=== PATIENT | female | born 1990 | race Caucasian/White ===

== ENCOUNTER 2016-09-27 14:08 | Inpatient (IN) | payer MEDICAID ==
[2016-09-27] VITALS (9 sets, daily range): BP systolic 109–132; BP diastolic 61–79; PULSE 91–124; RESP 18–20; TEMP 97.9–98.9
[~2016-09-27 14:08] MED LIST: Z.0.BCPILL PO; Z.0.NO CURRENT MEDS; ZITH250T PO
--- NOTE | 2016-09-27 15:12 | PD ---
HPI Chief Complaint Patient was thinking that her water might be leaking and was having some contractions Date Seen: Sep 27, 2016 Travel History International Travel<30 Days: No Contact w/Intl Traveler<30Days: No Known Affected Area: No History of Present Illness HPI Patient is a 26-year-old white female [address] Lin and Brandie presents complaining of possibly leaking fluid earlier in the day she wasn't sure and she is having some mild contractions but not really having pain and at times not even noticing if she is doris, heart rate tracing is reactive and she is doris irregularly Para: 1 : 2 History Obstetric History Obstetric History One vaginal delivery Social History Alcohol Use: No Tobacco Use: No Substance Abuse: No Allergies-Medications (Allergen,Severity, Reaction): Coded Allergies: Amoxicillin (Verified Allergy, Severe, Hives, 07/10/12) Percocet (Verified Allergy, Severe, 07/10/12) Penicillin (Verified Allergy, Intermediate, 07/10/12) Chocolate (Verified Allergy, Mild, SNEZZES, 07/10/12) Erythrocin (Verified Allergy, Mild, HIVES, 07/10/12) Zyrtec (Verified Allergy, Mild, Hives, 07/10/12) Home Meds Active Scripts Azithromycin (Zithromax Z-Jayden)250 Mg [id number] Mg PO DIRECTED 5 Days 500 MG (2 TABLETS) PO ON DAY 1, THEN 250 MG (1 TABLET) PO ON DAYS 2 TO 5. Prov:FARRAH BARRIENTOS M.D. 07/10/12 Azithromycin (Zithromax Z-Jayden)250 Mg [id number] Mg PO DIRECTED 5 Days 500 MG (2 TABLETS) PO ON DAY 1, THEN 250 MG (1 TABLET) PO ON DAYS 2 TO 5. Prov:Stanislaw Lynn 03/03/12 Reported Medications Miscellaneous (No Current Meds) Misc 07/10/12 Miscellaneous ( Control Pills) Tab1 Tab PO DAILY 12/30/11 Review of Systems General / Constitutional: No: Fever, Weight Gain, Chills, Other Physical Exam Narrative GENERAL: Well-nourished, well-developed patient. SKIN: Warm and dry. HEAD: Normocephalic and atraumatic. EYES: No scleral icterus. No injection or drainage. ENT: No nasal drainage noted. Mucous membranes pink. Airway patent. NECK: Supple, trachea midline. No JVD. CARDIOVASCULAR: Regular rate and rhythm without murmurs, gallops, or rubs. RESPIRATORY: Breath sounds equal bilaterally. No accessory muscle use. BREASTS: Bilateral exam showed no masses , no retractions, no nipple discharge. ABDOMEN/GI: Abdomen soft, non-tender, bowel sounds present, no rebound, no guarding Gravid to [-term] weeks size Fundal Height: [35 cm-] GENITOURINARY: External Genitalia: intact and normal in appearance BUS glands: [-] Cervix: [-Anterior] Dilatation: 5] Effacement: [80-] Station: [-1-] Presentation: [vtx-] Membranes: [intact] bulging Uterine Contractions: [irreg-] FHT's: Category: [1-] Baseline: [133-] Reactive: [-yes] Variability: [-mod] Decels: [-none] EXTREMITIES: No cyanosis or edema. BACK: Nontender without obvious deformity. No CVA tenderness. NEUROLOGICAL: Awake and alert. Motor and sensory grossly within normal limits. Five out of 5 muscle strength in all muscle groups. Normal speech. Data Data Labs Amnio sure negative MDM Interpretation(s) Patient is a 37 week intrauterine followed by [facility] presents complaining of some leakage of fluid in the M sure was negative. She is doris irregularly and is also noted to be cervix is 5 cm 80% of the bulging bag vertex presentation and with that advanced cervical condition will discuss with Dr. Lin if he'd liked to keep the patient here and get delivered or whatever his preference would be Diagnosis Diagnosis: Primary Impression: No leakage of amniotic fluid into vagina Additional Impression: Irregular contractions Diogo Mendez II, MD Sep 27, 2016 15:12
[2016-09-27] MEDS ORDERED: LACTATED RINGER'S 1000 ML INJ 1,000 ML IV SCH (15:28)
[2016-09-27] MEDS ORDERED: LIDOCAINE HCL 1% 50 ML VIAL INFIL PRN (15:30)
[2016-09-27] MEDS ORDERED: OXYTOCIN 30 UNITS-500ML PREMIX 500 ML IV ONE ×2 (15:30→22:15)
[2016-09-27] MEDS ORDERED: SODIUM CHLORID 0.9% 500 ML INJ 500 ML IV PRN (15:30)
[2016-09-27] MEDS ORDERED: MINERAL OIL 10 ML VIAL TOPICAL PRN (15:30)
[2016-09-27] MEDS ORDERED: LIDOCAINE HCL 1% 50 ML VIAL I-DERMAL PRN (15:30)
[2016-09-27] MEDS ORDERED: CITRIC ACID-SODIUM CITRATE LIQ 30 ML UDC PO SCH (15:30)
[2016-09-27] MEDS ORDERED: SODIUM CHLOR 0.9% 1000 ML INJ 1,000 ML IV PRN (15:48)
[2016-09-27] MEDS ORDERED: MEASLES, MUMPS, RUBELLA VACCINE 0.5 ML VIAL SQ ONE (16:00)
[2016-09-27] MEDS ORDERED: DIPHTH/TETANUS/ACEL PERTUSSIS (BOOSTER) 0.5 ML VIAL/PFS IM ONE (16:00)
[2016-09-27 16:09] LABS: AUTOMATED NEUTROPHIL # 10.2 TH/MM3 (1.8-7.7); BASOPHIL % 0.2 % (0.0-2.0); EOSINOPHIL # 0.1 TH/MM3 (0-0.4); EOSINOPHIL % 0.7 % (0.0-4.0); HEMATOCRIT 37.1 % (35.0-46.0); HEMO FLAGS DIFF FINAL; LYMPH % 11.1 % (9.0-44.0); LYMPHOCYTE # 1.4 TH/MM3 (1.0-4.8); MEAN CELL VOLUME 86.3 FL (80.0-100.0); MEAN CORPUSCULAR HGB CONC 34.8 % (32.0-36.0); MONO % 8.6 % (0.0-8.0); NEUT % 79.4 % (16.0-70.0); PLATELET COUNT 161 TH/MM3 (150-450); RED CELL DISTRIBUTION WIDTH 13.5 % (11.6-17.2); WHITE BLOOD COUNT 12.9 TH/MM3 (4.0-11.0)
[2016-09-27] MEDS ORDERED: OXYTOCIN 30 UNITS-500ML PREMIX 500 ML IV SCH (16:15)
[2016-09-27] MEDS: LACTATED RINGER'S 1000 ML INJ 1,000 ML IV PRN ×2 (16:26→20:36)
[2016-09-27 16:53] LABS: BACTERIA, URINE OCC /hpf; BLOOD, URINE NEG (NEG); COMMENT (UR) CULTURE INDICATED; CULTURE IF INDICATED CULTURE INDICATED; GLUCOSE,URINE NEG (NEG); KETONE, URINE NEG (NEG); MUCUS URINE FEW /lpf (OCC); NITRITE,URINE NEG (NEG); PH, URINE 6.5 (5.0-8.5); SQUAMOUS EPITHELIAL CELL URINE 8 /hpf (0-5); URINE COLOR YELLOW (YELLW/STRAW)
[2016-09-27] MEDS ORDERED: fentaNYL 2MCG-BUPIV 0.125% INJ 100 ML ONE (18:40)
[2016-09-27] MEDS ORDERED: ePHEDrine/NS 50 MG/5 ML SYR ONE (19:17)
[2016-09-27] MEDS ORDERED: ePHEDrine/NS 50 MG/5 ML SYR IV PRN (21:15)
[2016-09-27] MEDS ORDERED: DO NOT ADMINISTER ANTICOAGULANTS XX PRN (21:15)
[2016-09-27] MEDS ORDERED: NO SYSTEM NARCOTICS XX PRN (21:15)
[2016-09-27] MEDS ORDERED: fentaNYL 2MCG-BUPIV 0.125% INJ 100 ML EPIDURAL SCH (21:15)
--- NOTE | 2016-09-27 22:04 | PD.OB.DELI ---
Delivery Date: Sep 27, 2016 Anesthesia: Epidural Episiotomy: None Vaginal Delivery: Normal Presentation: Occiput anterior Nuchal Cord: None : Female One Minute : 8 Five Minute : 9 Weight: 6/15 Infant Care: Suctioned, Spontaneous crying, Responded to stimulation Placenta: Spontaneous delivery, Intact, 3 vessel cord Laceration: Vaginal laceration, 1 deg Repair: Vicryl running Additional Information Beautiful delivery Bilateral first degree labial tears repaired with 5-0 vicryl. EBL 300cc Darien Lin MD Sep 27, 2016 22:04
[2016-09-27] MEDS ORDERED: ZOLPIDEM TARTRATE 5 MG TAB PO PRN (22:15)
[2016-09-27] MEDS ORDERED: ONDANSETRON ODT 4 MG TAB PO PRN (22:15)
[2016-09-27] MEDS ORDERED: ALUMINUM/MAGNESIUM/SIMETH 30 ML CUP PO PRN (22:15)
[2016-09-27] MEDS ORDERED: BENZOCAINE 20% TOPICAL SPRAY 60 ML CAN TOPICAL PRN (22:15)
[2016-09-27] MEDS ORDERED: WITCH HAZEL 50%/GLYCERIN 12.5% 40 PAD JAR TOPICAL PRN (22:15)
[2016-09-27] MEDS ORDERED: SODIUM CHLORIDE 0.9% FLUSH 5 ML FLUSH IV PRN (22:15)
[2016-09-27] MEDS ORDERED: DOCUSATE SODIUM 50 MG/SENNA 8.6 MG TAB PO PRN (22:15)
[2016-09-27] MEDS ORDERED: oxyCODONE/ACETAMINOPHEN 5 MG/325 MG TAB PO PRN ×2 (22:15)
[2016-09-28 00:03] VITALS: BP 104/65; PULSE 95; RESP 18; TEMP 98.2
[2016-09-28] MEDS: IBUPROFEN 600 MG TAB PO PRN ×4 (03:33→21:28)
[2016-09-28 08:02] VITALS: BP 120/82; PULSE 88; RESP 18; TEMP 97.9
[2016-09-28] MEDS ORDERED: SODIUM CHLORIDE 0.9% FLUSH 5 ML FLUSH IV SCH (09:00)
--- NOTE | 2016-09-28 15:24 | HHI.OB ---
Subjective Post Day: 1 Objective Vitals/I&O Vital Signs Date Time Temp Pulse Resp B/P Pulse Ox O2 Delivery O2 Flow Rate FiO2 09/28/16 08:02 97.9 18 09/28/16 08:02 88 120/82 09/28/16 04:33 16 09/28/16 00:03 95 104/65 09/28/16 00:03 98.2 18 09/27/16 22:22 18 09/27/16 22:15 110 109/61 09/27/16 22:12 98.9 18 09/27/16 21:51 20 09/27/16 21:45 124 110/64 09/27/16 21:30 93 132/69 09/27/16 21:15 91 09/27/16 21:15 118/79 09/27/16 20:34 18 09/27/16 19:00 18 09/27/16 17:56 97.9 18 09/27/16 16:59 106 109/74 Objective Remarks GENERAL: Well-nourished, well-developed patient. CARDIOVASCULAR: Regular rate and rhythm without murmurs, gallops, or rubs. RESPIRATORY: Breath sounds equal bilaterally. No accessory muscle use. ABDOMEN/GI: Abdomen soft, non-tender. Fundus: Firm, non-tender at umbilicus. GENITOURINARY: Light to moderate bleeding. EXTREMITIES: No cyanosis or edema, non-tender, without signs of DVT. Medications and IVs Current Medications Medications (Trade) Dose Ordered Sig/Airam Route Start Time Stop Time Status Last Admin (NS Flush) 2 ml BID IV 09/28/16 09:00 (NS Flush) 2 ml UNSCH PRN IV 09/27/16 22:15 (Tylenol) 650 mg Q4H PRN PO 09/27/16 22:15 (Motrin) 600 mg Q6H PRN PO 09/27/16 22:15 09/28/16 09:42 (Americaine 20% Top Spr) 1 spray Q4H PRN TOPICAL 09/27/16 22:15 09/27/16 23:56 (Tucks Pads) 1 applic QID PRN TOPICAL 09/27/16 22:15 09/27/16 23:55 (Saadia-Colace) 2 tab Q12H PRN PO 09/27/16 22:15 (Ambien) 5 mg HS PRN PO 09/27/16 22:15 (Mag-Al Plus Susp Liq) 15 ml Q8H PRN PO 09/27/16 22:15 (Zofran Odt) 4 mg Q6H PRN PO 09/27/16 22:15 Assessment/Plan Problem List: (1) Normal vaginal delivery Plan: routine Assessment and Plan POD #1 pt doing well bonding wit pain well managed with oral pain mediation voiding without difficulty routine care Discharge Planning consider dc home tomorrow Brissa Lindsey Sep 28, 2016 15:24
[2016-09-28] MEDS: ACETAMINOPHEN 325 MG TAB PO PRN ×2 (17:12→21:27)
[2016-09-29] MEDS: ACETAMINOPHEN 325 MG TAB PO PRN ×3 (03:46→14:10)
[2016-09-29] MEDS: IBUPROFEN 600 MG TAB PO PRN ×3 (03:47→16:09)
[2016-09-29 08:50] VITALS: BP 103/66; PULSE 83; RESP 16; TEMP 98.5
[2016-09-29] MEDS ORDERED: IBUP-232 PO (14:08)
--- NOTE | 2016-09-29 14:09 | HHI.DCPOC ---
Discharge Care Plan Diagnosis: (1) Normal vaginal delivery Your Health Problems Are: Vaginal delivery Report Symptoms to Your Doctor -Temperate above 100.5 degrees -Redness, of incision or excessive or foul smelling drainage -Unusual pain or calf pain -Increased vaginal bleeding -Painful or difficulty urinating -Feelings of extreme sadness or anxiety after 2 weeks Goals to Promote Your Health * To prevent worsening of your condition and complications * To maintain your health at the optimal level Directions to Meet Your Goals Take your medications as prescribed Follow your dietary instruction Follow activity as directed Ensure plenty of rest for recovery Drink fluids for hydration Keep your appointments as scheduled Take your immunizations and boosters as scheduled If your symptoms worsen call your PCP, if no PCP go to Urgent Care Center or Emergency Room Smoking is Dangerous to Your Health. Avoid second hand smoke Call the 24-hour crisis hotline for domestic abuse at Brissa Lindsey Sep 29, 2016 14:09
--- NOTE | 2016-09-29 14:12 | HHI.OB ---
Subjective Post Day: 2 Objective Vitals/I&O Vital Signs Date Time Temp Pulse Resp B/P Pulse Ox O2 Delivery O2 Flow Rate FiO2 09/29/16 08:50 98.5 83 16 103/66 09/29/16 04:46 16 09/29/16 04:46 16 Objective Remarks GENERAL: Well-nourished, well-developed patient. CARDIOVASCULAR: Regular rate and rhythm without murmurs, gallops, or rubs. RESPIRATORY: Breath sounds equal bilaterally. No accessory muscle use. ABDOMEN/GI: Abdomen soft, non-tender. Fundus: Firm, non-tender at umbilicus. GENITOURINARY: Light to moderate bleeding. EXTREMITIES: No cyanosis or edema, non-tender, without signs of DVT. Medications and IVs Current Medications Medications (Trade) Dose Ordered Sig/Airam Route Start Time Stop Time Status Last Admin (NS Flush) 2 ml BID IV 09/28/16 09:00 (NS Flush) 2 ml UNSCH PRN IV 09/27/16 22:15 (Tylenol) 650 mg Q4H PRN PO 09/27/16 22:15 09/29/16 09:52 (Motrin) 600 mg Q6H PRN PO 09/27/16 22:15 09/29/16 09:52 (Americaine 20% Top Spr) 1 spray Q4H PRN TOPICAL 09/27/16 22:15 09/27/16 23:56 (Tucks Pads) 1 applic QID PRN TOPICAL 09/27/16 22:15 09/27/16 23:55 (Saadia-Colace) 2 tab Q12H PRN PO 09/27/16 22:15 09/29/16 09:52 (Ambien) 5 mg HS PRN PO 09/27/16 22:15 (Mag-Al Plus Susp Liq) 15 ml Q8H PRN PO 09/27/16 22:15 (Zofran Odt) 4 mg Q6H PRN PO 09/27/16 22:15 Assessment/Plan Problem List: (1) Normal vaginal delivery Plan: routine Assessment and Plan POD #2 pt doing well on bili lights pain well managed with oral pain mediation unsure about bc routine care Discharge Planning dc home today Brissa Lindsey Sep 29, 2016 14:12
--- NOTE | 2016-09-29 14:15 | HHI.DS ---
Admission Date Sep 27, 2016 at 15:26 Discharge Date: Sep 29, 2016 Admitting Diagnosis 37 weeks gestation labor Diagnosis: (1) Normal vaginal delivery Delivery Date: Sep 27, 2016 Vaginal Delivery: Normal : Female Brief History 37 weeks gestation labor Hospital Course routine Pt Condition on Discharge: Good Discharge Disposition: Discharge Home Discharge Instructions Diet Instructions: As Tolerated, No Restrictions Activities You Can Perform: Regular-No Restrictions, Shower Only-No Bath, Pelvic Rest Activities to Avoid: Strenuous Activity, Bathing, Driving, Sexual Activity Follow up Referrals: CLINICAL ABSTRACTOR - 2 Weeks @ [facility] New Medications: Ibuprofen (Ibuprofen) 600 Mg Tab 600 MG PO Q6H moderate pain #30 Ref 1 TAB Discontinued Medications: Miscellaneous (No Current Meds) [facility] [place] Brissa Lindsey Sep 29, 2016 14:15
== END 2016-09-29 18:30 | disposition home or self-care (01) | DRG 775 ==
LOC: HOBED 14:08 → H2EA 15:26 → H1EA 23:35
PROVIDERS: ADMIT Obstetrics & Gynecology; ATTEND Obstetrics & Gynecology
PROC: 0HQ9XZZ Repair Perineum Skin, External Approach (ICD-10-PCS; principal; 2016-09-27)
PROC: 10E0XZZ Delivery of Products of Conception, External Approach (ICD-10-PCS; 2016-09-27)
PROC: 3E0R3CZ (ICD-10-PCS; 2016-09-27)
PROC: 00HU33Z Insertion of Infusion Device into Spinal Canal, Percutaneous Approach (ICD-10-PCS; 2016-09-27)
DX: O70.0 First degree perineal laceration during delivery (principal); Z37.0 Single live birth; Z3A.37 37 weeks gestation of pregnancy
CPT/HCPCS: 81001; 84112; 85025; 86900; 86901; 87086; 99285; J2590; J3010; J7120

== ENCOUNTER 2017-01-09 15:16 | Emergency (ER) | payer MEDICAID, OTHER ==
[~2017-01-09 15:16] MED LIST changes: +IBUP-232 PO; -Z.0.BCPILL PO; -Z.0.NO CURRENT MEDS; -ZITH250T PO
[2017-01-09 15:19] VITALS: BP 124/76; PULSE 83; RESP 15; TEMP 98.2; O2SAT 99
[2017-01-09] MEDS ORDERED: IBUP-232 PO (16:05)
[2017-01-09] MEDS ORDERED: CLIN1CAP6 PO (16:05)
--- NOTE | 2017-01-09 16:06 | PD ---
HPI Chief Complaint: Skin Problem Time Seen by Provider: 16:03 Travel History International Travel<30 days: No Contact w/Intl Traveler<30days: No Traveled to known affect area: No History of Present Illness HPI 26-year-old female presents to the emergency Department with complaint of a red line that she noticed on her left breast this morning. She is currently breast- feeding her 3-month-old baby. Reports pain at approximately the 9 to 12 o' clock position to the left breast also. She called her philatelic consultant and was told to come to the emergency department or follow-up with primary care immediately. The patient does not have established primary care provider so came to the ER. She denies fever, chills, nausea, vomiting. She has not taken any medications or tried any treatments to alleviate her symptoms. Allergies to amoxicillin, penicillin, Percocet, Zyrtec, chocolate, Erythrocin. No other medical complaints. No other modifying factors or associated signs and symptoms. PFSH Past Medical History Asthma: Yes Depression: Yes Diminished Hearing: No : 1 Para: 0 Social History Alcohol Use: No Tobacco Use: No Substance Use: No Allergies-Medications (Allergen,Severity, Reaction): Coded Allergies: Amoxicillin (Verified Allergy, Severe, Hives, 01/09/17) Percocet (Verified Allergy, Severe, 01/09/17) Penicillin (Verified Allergy, Intermediate, 01/09/17) Chocolate (Verified Allergy, Mild, SNEZZES, 01/09/17) Erythrocin (Verified Allergy, Mild, HIVES, 01/09/17) Zyrtec (Verified Allergy, Mild, Hives, 01/09/17) Reported Meds & Prescriptions Reported Meds & Active Scripts Active Ibuprofen 600 Mg Tab 600 Mg PO Q8HR PRN Clindamycin (Clindamycin HCl) 300 Mg Cap 300 Mg PO TID 10 Days Review of Systems Except as stated in HPI: all other systems reviewed are Neg Physical Exam Narrative GENERAL: Well-nourished, well-developed female patient, in no acute distress; afebrile, nontoxic-appearing SKIN: Warm and dry. HEAD: Atraumatic. Normocephalic. EYES: Pupils equal and round. No scleral icterus. No injection or drainage. ENT: Mucosa pink and moist. Airway patent. NECK: Trachea midline. BREAST: No palpable lumps to the left breast. Very mild area of erythema, if any erythema, noted to the 9 to 12 o'clock position and the areas with tenderness on palpation. Breast milk expressed from nipple. No skin dimpling. CARDIOVASCULAR: Regular rate. RESPIRATORY: No accessory muscle use. GASTROINTESTINAL: Flat. MUSCULOSKELETAL: No obvious deformities. No clubbing. No cyanosis. No edema. NEUROLOGICAL: Awake and alert. Oriented 3. No obvious cranial nerve deficits. Motor grossly within normal limits. Normal speech. PSYCHIATRIC: Appropriate mood and affect; insight and judgment normal. Data Data Last Documented VS Vital Signs Date Time Temp Pulse Resp B/P Pulse Ox O2 Delivery O2 Flow Rate FiO2 01/09/17 15:19 98.2 83 15 124/76 99 MDM Medical Decision Making Medical Screen Exam Complete: Yes Emergency Medical Condition: Yes Medical Record Reviewed: Yes Differential Diagnosis Mastitis, abscess, breast pain Narrative Course 26-year-old female physical exam and history of present illness consistent with acute mastitis of the left breast. Patient is afebrile and nontoxic-appearing. There is very minimal, if any, erythema noted to the 9- 12:00 aspect of the left breast. The area is tender to palpation. The patient is not really interested in taking antibiotics or medications if she doesn't need to. I did discuss initial management of mastitis with the patient and she verbalized understanding and agreement. I did prescribe antibiotics for home and told the patient to start them in 12-24 hours if there was no improvement in symptoms or if symptoms worsened despite initial management. Patient allergic to amoxicillin and penicillin. Clindamycin and ibuprofen prescribed for home. Patient verbalizes understanding and agreement with treatment plan. Patient is medically cleared and stable for discharge. Discussed reasons to return to the emergency department. Instructed patient to follow up with primary care provider. Patient agrees with treatment plan. The patients vital signs are stable and the patient is stable for outpatient follow-up and treatment. Patient discharged home, stable and in no acute distress. Diagnosis Primary Impression: Acute mastitis of left breast Referrals: Primary Care Physician Patient Instructions: General Instructions, Mastitis (ED) Departure Forms: Tests/Procedures, Work Release Enter return to work date: Jan 10, 2017 Additional Instructions: Continue breast-feeding regularly and empty breasts completely after feeding with continued pumping afterwards Start antibiotics in the next 12-24 hours if symptoms do not resolve or they worsen despite initial management Cold compresses to the affected area Keep area clean and dry Ibuprofen or Tylenol as instructed and as needed for pain and inflammation Follow-up with primary care provider Return to emergency department immediately with worsening of symptoms Med/Other Pt SpecificInfo: Prescription(s) given Scripts Ibuprofen 600 Mg [id number] Mg PO Q8HR PRN (PAIN) #20 TAB Ref 0 Prov:Camille Hensley 01/09/17 Clindamycin 300 Mg [id number] Mg PO TID 10 Days Ref 0 Prov:Camille Hensley 01/09/17 Disposition: 01 DISCHARGE HOME Condition: Stable Camille Hensley Jan 09, 2017 16:06
== END 2017-01-09 16:40 | disposition home or self-care (01) ==
LOC: NEPK 15:16
DX: N61.0 Mastitis without abscess (principal)
CPT/HCPCS: 99283

== ENCOUNTER 2017-02-24 07:14 | Emergency (ER) | payer MEDICAID ==
[~2017-02-24] VITALS: Ht 157.5 cm; Wt 65.0 kg
[~2017-02-24 07:14] MED LIST changes: +CLIN1CAP6 PO
[2017-02-24 07:15] VITALS: BP 120/72; PULSE 86; RESP 16; TEMP 98.8; O2SAT 97
--- NOTE | 2017-02-24 08:27 | PD ---
HPI Chief Complaint: Edema Time Seen by Provider: 08:03 Travel History International Travel<30 days: No Contact w/Intl Traveler<30days: No Traveled to known affect area: No History of Present Illness HPI Patient is a 26-year-old female who presents to emergency with complaints of right-sided clogged breast duct. Reports that she is currently breast-feeding, reports that she has noticed that one of her milk ducts have clogged up and reports increased pain to the duct. Reports no infection or redness surrounding breast, reports that she is able to produce milk to her right breast without any difficultly. No other c/o. PFSH Past Medical History Asthma: Yes Depression: Yes Diminished Hearing: No ?: Not : 1 Para: 0 Social History Alcohol Use: No Tobacco Use: No Substance Use: No Allergies-Medications (Allergen,Severity, Reaction): Coded Allergies: Amoxicillin (Verified Allergy, Severe, Hives, 02/24/17) Percocet (Verified Allergy, Severe, 02/24/17) Penicillin (Verified Allergy, Intermediate, 02/24/17) Chocolate (Verified Allergy, Mild, SNEZZES, 02/24/17) Erythrocin (Verified Allergy, Mild, HIVES, 02/24/17) Zyrtec (Verified Allergy, Mild, Hives, 02/24/17) Reported Meds & Prescriptions Reported Meds & Active Scripts Active No Active Prescriptions or Reported Medications Review of Systems General / Constitutional: No: Fever Eyes: No: Visual changes HENT: No: Headaches Cardiovascular: No: Chest Pain or Discomfort Respiratory: No: Shortness of Breath Gastrointestinal: No: Abdominal Pain Genitourinary: No: Dysuria Musculoskeletal: No: Pain Skin: No Rash Neurologic: No: Weakness Psychiatric: No: Depression Endocrine: No: Polydipsia Hematologic/Lymphatic: No: Easy Bruising Physical Exam Narrative GENERAL: nad, nontoxic SKIN: Focused skin assessment warm/dry. HEAD: Atraumatic. Normocephalic. EYES: Pupils equal and round. No scleral icterus. No injection or drainage. ENT: No nasal bleeding or discharge. Mucous membranes pink and moist. NECK: Trachea midline. No JVD. CARDIOVASCULAR: Regular rate and rhythm. No murmur appreciated. Patient with no redness/cellulitis or erythema, there is tenderness to area of right lateral breast - no signs of infection, no mastitis, left breast normal exam RESPIRATORY: No accessory muscle use. Clear to auscultation. Breath sounds equal bilaterally. GASTROINTESTINAL: Abdomen soft, non-tender, nondistended. Hepatic and splenic margins not palpable. MUSCULOSKELETAL: No obvious deformities. No clubbing. No cyanosis. No edema. NEUROLOGICAL: Awake and alert. No obvious cranial nerve deficits. Motor grossly within normal limits. Normal speech. PSYCHIATRIC: Appropriate mood and affect; insight and judgment normal. Data Data Last Documented VS Vital Signs Date Time Temp Pulse Resp B/P Pulse Ox O2 Delivery O2 Flow Rate FiO2 02/24/17 07:15 98.8 86 16 120/72 97 Room Air MDM Medical Decision Making Medical Screen Exam Complete: Yes Emergency Medical Condition: Yes Interpretation(s) Vital Signs Date Time Temp Pulse Resp B/P Pulse Ox O2 Delivery O2 Flow Rate FiO2 02/24/17 07:15 98.8 86 16 120/72 97 Room Air Differential Diagnosis clogged duct in right breast vs mass Narrative Course 26-year-old female who is currently breast-feeding, that she keeps having an duct in her right breast "clogged." reports that the area of her breast is painful - no signs of infection. She has been applying warm compresses with no relief of symptoms. Patient here for further advice on how to "unclog" her milk duct. Patient appears nontoxic and evaluation. There is no signs of mastitis or mastoiditis to her right breast, there is an area of tenderness to her right lateral breast, patient with most likely clogged milk duct. I did tell patient to continue with warm compresses to breast. She is to follow up with her predator control trapper for further workup of symptoms if they do not resolved. Understands need for further workup by her music pastor if symptoms do not resolve. She will return to ER as needed. Diagnosis Primary Impression: Breast pain, right Patient Instructions: General Instructions Additional Instructions: Please apply warm compresses to your right breast, acetaminophen for pain Please follow-up with your CIRCUIT RECORDER as soon as possible for earliest follow-up care and for further workup if needed Return to the emergency room as needed or if you develop any signs of infection Scripts No Active Prescriptions or Reported Meds Disposition: 01 DISCHARGE HOME Condition: Stable Alissa Barrow DO Feb 24, 2017 08:27
== END 2017-02-24 08:38 | disposition home or self-care (01) ==
LOC: NEPE 07:14
DX: N64.4 Mastodynia (principal)
CPT/HCPCS: 99282

== ENCOUNTER 2017-05-24 09:01 | Emergency (ER) | payer MEDICAID ==
[~2017-05-24] VITALS: Ht 157.5 cm; Wt 70.0 kg
[2017-05-24 09:20] VITALS: BP 101/67; PULSE 101; RESP 16; O2SAT 98
[2017-05-24] MEDS ORDERED: BACT800T5 PO (09:24)
--- NOTE | 2017-05-24 09:27 | PD ---
HPI Chief Complaint: Skin Problem Time Seen by Provider: 09:13 Travel History International Travel<30 days: No Contact w/Intl Traveler<30days: No Traveled to known affect area: No History of Present Illness HPI This patient complains of mastitis and the rest breast. She's had it multiple times before. She is breast-feeding currently without difficulty. Denies fever. Symptoms severity is mild. No alleviating factors PFSH Past Medical History Asthma: Yes Depression: Yes Diminished Hearing: No Immunizations Current: Yes ?: Not LMP: 04/2017 : 2 Para: 2 Past Surgical History Surgical History: No Previous Surgery Social History Alcohol Use: No Tobacco Use: No Substance Use: No Allergies-Medications (Allergen,Severity, Reaction): Coded Allergies: acetaminophen (Unverified Allergy, Severe, 05/24/17) amoxicillin (Unverified Allergy, Severe, Hives, 05/24/17) oxycodone (Unverified Allergy, Severe, 05/24/17) penicillin G (Unverified Allergy, Intermediate, 05/24/17) cetirizine (Unverified Allergy, Mild, Hives, 05/24/17) chocolate flavor (Unverified Allergy, Mild, SNEZZES, 05/24/17) erythromycin base (Unverified Allergy, Mild, HIVES, 05/24/17) Reported Meds & Prescriptions Reported Meds & Active Scripts Active Bactrim DS (Sulfamethoxazole-Trimethoprim) 800-160 Mg Tab 1 Tab PO BID Review of Systems General / Constitutional: No: Fever HENT: No: Headaches Cardiovascular: No: Chest Pain or Discomfort Physical Exam Narrative CARDIOVASCULAR: Regular rate and rhythm without murmur. Extremities showed no edema or varicosities. GASTROINTESTINAL: Abdomen soft, non-tender, nondistended. Positive bowel sounds. No hepato-splenomegaly, or palpable masses. No guarding. Breasts: There is some macular erythema on the right breast that is not present on the left. There is no tenderness or fluctuance. Data Data Last Documented VS Vital Signs Date Time Temp Pulse Resp B/P (MAP) Pulse Ox O2 Delivery O2 Flow Rate FiO2 05/24/17 09:20 101 16 101/67 (78) 98 Room Air MDM Medical Decision Making Medical Screen Exam Complete: Yes Emergency Medical Condition: Yes Medical Record Reviewed: Yes Differential Diagnosis Mastitis, cellulitis, allergic reaction Narrative Course I have reviewed the patient's electronic medical record. sHe's been here for mastitis twice before I prescribed her some Bactrim DS. The patient was advised to follow up with their physician and return if they worsen. Diagnosis Primary Impression: Acute mastitis of right breast Additional Instructions: The patient was advised to follow up with their physician and return if they worsen. Med/Other Pt SpecificInfo: Prescription(s) given Scripts Sulfamethoxazole-Trimethoprim (Bactrim DS) 800-160 Mg Tab 1 TAB PO BID for Infection, #14 TAB 0 Refills Prov: Stanislaw Jaimes MD 05/24/17 Disposition: 01 DISCHARGE HOME Condition: Stable Stanislaw Jaimes MD May 24, 2017 09:27
== END 2017-05-24 09:37 | disposition home or self-care (01) ==
LOC: NEPD 09:01
DX: N61.0 Mastitis without abscess (principal); J45.909 Unspecified asthma, uncomplicated; F32.9 Major depressive disorder, single episode, unspecified; Z88.6 Allergy status to analgesic agent; Z88.0 Allergy status to penicillin; Z88.1 Allergy status to other antibiotic agents; Z88.5 Allergy status to narcotic agent; Z88.8 Allergy status to other drugs, medicaments and biological substances
CPT/HCPCS: 99283